=== PATIENT | male | born 1980 | race Caucasian/White ===

== ENCOUNTER 2016-12-07 23:12 | Emergency (ER) | payer SELFPAY ==
[2016-12-07] MEDS ORDERED: 0.9 % SODIUM CHLORIDE 1,000 ML IV ONE (23:29)
--- NOTE | 2016-12-08 00:03 | ED Physician Documentation ---
General Adult - HISTORIAN Historian: patient, paramedics - HPI Stated Complaint: passed out Chief Complaint: General Adult Additional Information: Three beers this morning and his usual 20 mg lisinopril. Took white valium tablet at 1300 that he got from someone else, for stress. Took another 20 mg lisinopril later in the daybecause he felt like his BP was up. Went to [place] tonight and when he got there, everything went black and he passed out. Denies injury. BP 111/60 on arrival in ER. Initial orthostatics show significant drop in pressure with standing. - ROS CONST: no problems MS/SKIN/LYMPH: back pain (has had this before) - PAST HX Past History: hypertension Allergies/Adverse Reactions: Allergies Allergy/AdvReac Type Severity Reaction Status Date / Time Sulfa (Sulfonamide Allergy Verified 12/07/16 23:50 Antibiotics) Home Medications: Ambulatory Orders Medication Instructions Recorded Lisinopril [Zestril] 20 mg PO DAILY 06/21/16 - SOCIAL HX Smoking History: cigarettes Alcohol Use: occasionally Drug Use: none - FAMILY HX Family History: No - VITAL SIGNS Vital Signs: Vital Signs Temp Pulse Resp BP Pulse Ox 112/72 06/21/16 23:32 - REVIEWED ASSESSMENTS Nursing Assessment Reviewed: Yes Vitals Reviewed: Yes Progress - Progress Progress: Portable chest History: Syncope Findings: The lungs are clear. No pleural effusions are observed. Heart size and pulmonary vascularity are normal. Osseous structures are unremarkable. Impression: Normal portable chest. Electronically signed on Dec 07, 2016 11:57:09 PM CDT by: John Gardner EKG: sinus rhythm, 70 BPM, no acute ischemic changes Labs good. UDS non-negative for cannabinoids. Interestingly, negative for benzodiazepines. Orthostatics stable after 2L NS. ED Results Lab/Radiology - Orders Orders: ED Orders Category Date Time Status Continuous EKG monitoring Q1H Care 12/07/16 23:29 Ordered Continuous Pulse Oximetry Q1H Care 12/07/16 23:29 Ordered Orthostatics 1T Care 12/07/16 23:[address] Saline Lock/IV Now Care 12/07/16 23:29 Ordered CHEST 1 VIEW [RAD] Stat Exams 12/07/16 Ordered DRUG SCREEN URINE MEDICAL ONLY Routine Lab 12/07/16 Ordered URINALYSIS Routine Lab 12/07/16 Ordered Chem Sticks Med 12/07/16 23:30 Ordered 1 each MC CHEMQ PRN NORMAL SALINE @ 1000 MLS/HR ( 1000ml BOLUS) Med 12/07/16 23:29 Ordered 0.9 % Sodium Chloride [Normal Saline] 1,000 ml IV Q1H EKG WITH COMPARISON Stat Ther 12/07/16 Ordered General Adult Physical Exam - PHYSICAL EXAM GENERAL APPEARANCE: no distress EENT: eye inspection normal, ENT inspection normal NECK: normal inspection, supple RESPIRATORY: no resp distress, chest non-tender, breath sounds normal CVS: reg rate & rhythm, heart sounds normal, no murmur, no gallop ABDOMEN: soft, normal bowel sounds RECTAL: deferred BACK: normal inspection, no CVA tenderness SKIN: warm/dry, normal color EXTREMITIES: no evidence of injury, no edema NEURO: CN's nml as tested, motor nml, sensation nml, cognition normal Discharge Clincal Impression: Syncope Qualifiers: Syncope type: unspecified Qualified Code(s): R55 - Syncope and collapse Home Medications: Ambulatory Orders Lisinopril [Zestril] 20 mg PO DAILY 06/21/16 Condition: Good Disposition: 01 HOME, SELF-CARE Decision to Admit: NO Decision Time: 01:24
[2016-12-08] MEDS ORDERED: 0.9 % SODIUM CHLORIDE 1,000 ML IV ONE (00:30)
[2016-12-08 00:32] LABS: BASOPHILS % 0.3 (0.0-1.5); EOSINOPHILS % 2.2 % (0.0-6.8); MEAN CORPUSCULAR HEMOGLOBIN 27.6 pg (28.0-34.0); MEAN CORPUSCULAR VOLUME 84.3 fl (80.0-100.0); MONOCYTES % 4.4 % (0.0-11.0); NEUTROPHILS # 4.4 # k/uL (1.4-7.7)
[2016-12-08 00:35] LABS: eGFR (African) > 60; eGFR (Non-African) > 60
[2016-12-08 01:44] VITALS: BP 126/61
[2016-12-08 05:32] LABS: AMPHETAMINE NEGATIVE ng/mL (<1000); BARBITURATES NEGATIVE ng/mL (<300); CANNABINOIDS NON NEGATIVE ng/mL (<50); COCAINE NEGATIVE ng/mL (<150); METHAMPHETAMINE NEGATIVE ng/mL (<1000); METHYLENEDIOXYMETHAMPHETAMINE NEGATIVE ng/mL (<500)
[2016-12-08 05:33] LABS: APPEARANCE,URINE CLEAR (CLEAR); COLOR,URINE YELLOW (YELLOW); OCCULT BLOOD,URINE NEGATIVE (NEGATIVE); PH URINE 5.5 (5.0 - 8.0); UROBILINOGEN URINE 0.2 Eu (0.2-1.0)
--- NOTE | 2016-12-08 06:26 | Diagnostic Imaging Report ---
MACKENZIE JIANG - KATIE [facility] [id number] [facility] [address] [place] [address]. [id number] Report Submission Date: Dec 07, 2016 11:57:09 PM CDT Patient Study Name: WINNIE MAZA Date: Dec 07, 2016 11:38:19 PM CDT Modality Type: CR Gender: M Description: CHEST : 82 Institution: [facility] Physician: MACKENZIE JIANG - KATIE Portable chest History: Syncope Findings: The lungs are clear. No pleural effusions are observed. Heart size and pulmonary vascularity are normal. Osseous structures are unremarkable. Impression: Normal portable chest. Electronically signed on Dec 07, 2016 11:57:09 PM CDT by: John ANDREA
== END 2016-12-08 01:25 | disposition home or self-care (01) ==
LOC: ED 23:12
DX: R55 Syncope and collapse (principal)
CPT/HCPCS: 71010; 80053; 80320; 80377; 81002; 85025; 93005; J7030; 96360; 99283; G0480; G0481; S1016

== ENCOUNTER 2017-10-14 14:58 | Emergency (ER) | payer SELFPAY ==
--- NOTE | 2017-10-14 15:02 | ED Physician Documentation ---
General Adult - HISTORIAN Historian: patient, paramedics - HPI Stated Complaint: chest pain Chief Complaint: General Adult Onset: minutes Timing: still present Severity: moderate Further Comments: yes (Pt is a 37 yo male with no previous cardiac hx who had sudden onset of chest pain after sitting smoking a cigarette. Pt has hx HTN. Pain was central and did not radiate. Pt did not have n/v/diaphoresis.) - ROS CONST: no problems EYES/ENT: none CVS/RESP: chest pain GI/: none MS/SKIN/LYMPH: none - PAST HX Past History: hypertension Allergies/Adverse Reactions: Allergies Allergy/AdvReac Type Severity Reaction Status Date / Time Sulfa (Sulfonamide Allergy Verified 10/14/17 15:28 Antibiotics) Home Medications: Ambulatory Orders Medication Instructions Recorded Lisinopril [Zestril] 20 mg PO DAILY 06/21/16 - SOCIAL HX Smoking History: less than 1 pack/day - FAMILY HX Family History: No - VITAL SIGNS Vital Signs: Vital Signs Temp Pulse Resp BP Pulse Ox 126/61 12/08/16 01:37 - REVIEWED ASSESSMENTS Nursing Assessment Reviewed: Yes Vitals Reviewed: Yes Progress - Progress Progress: ASA 325 mg po GI cocktail Sx resolved shortly after GI cocktail Rx Ranitidine 150 mg Sig 1 po bid. Disp 60; RF 2. f/u pcp prn - EKG/XRAY/CT EKG: NSR (HR=89; normal WI interval; normal axis.) XRAY: chest (neg) General Adult Physical Exam - PHYSICAL EXAM GENERAL APPEARANCE: mild distress EENT: pharynx normal NECK: normal inspection, supple RESPIRATORY: no resp distress, chest non-tender, breath sounds normal CVS: reg rate & rhythm, heart sounds normal, equal pulses ABDOMEN: soft, no organomegaly, normal bowel sounds BACK: normal inspection, no CVA tenderness SKIN: warm/dry, normal color EXTREMITIES: non-tender, normal range of motion, no evidence of injury, no edema NEURO: oriented X3, motor nml, sensation nml Discharge Clincal Impression: GERD (gastroesophageal reflux disease) Qualifiers: Esophagitis presence: esophagitis presence not specified Qualified Code(s): K21.9 - Gastro-esophageal reflux disease without esophagitis Referrals: Primary Doctor,No [Primary Care Provider] - Condition: Good Decision to Admit: NO Decision Time: 16:34
[2017-10-14] MEDS ORDERED: ASPIRIN 81 MG CHEW TAB PO ONE (15:03)
[2017-10-14 15:26] LABS: BASOPHILS % 0.4 (0.0-1.5); EOSINOPHILS % 1.9 % (0.0-6.8); MEAN CORPUSCULAR HEMOGLOBIN 26.9 pg (28.0-34.0); MEAN CORPUSCULAR VOLUME 84.7 fl (80.0-100.0); MONOCYTES % 4.6 % (0.0-11.0); NEUTROPHILS # 5.8 # k/uL (1.4-7.7)
[2017-10-14 15:40] LABS: eGFR (African) > 60; eGFR (Non-African) > 60
[2017-10-14] MEDS ORDERED: MAG HYDROX/AL HYDROX/SIMETH 30 ML, Lidocaine 2%Visc 15ml 20 MG, PHENobarb/HYOSCY/ATROPI... PO ONE ×3 (16:12)
[2017-10-14] MEDS ORDERED: Lidocaine 2%Visc 15ml 20 MG/ML UDC ONE (16:12)
[2017-10-14] MEDS ORDERED: MAGNESIUM HYDROXIDE/AL HYDROX 30 ML UDC PO ONE (16:12)
--- NOTE | 2017-10-14 16:29 | Diagnostic Imaging Report ---
ZAIRA SOLIS [facility] [id number] [facility] [address] [place] [address]. [id number] Report Submission Date: Oct 14, 2017 3:37:43 PM CLINIC LPN Patient Study Name: WINNIE MAZA Date: Oct 14, 2017 3:19:10 PM CLINIC LPN Modality Type: DX Gender: M Description: CHEST : 82 Institution: [facility] Physician: ZIARA SOLIS Examination: Portable chest History: CHEST PAIN X1 HOUR, PT STATES FEELING FULL/CONGESTED IN HIS CHEST (Hx) Comparison exam: None available for direct review. Findings: Single view of the chest demonstrates a normal cardiac and mediastinal silhouette. Lung kelley without focal infiltrate. No blunting of the costophrenic margins. Osseous structures are appropriate for age. Impression: No acute pulmonary process. Electronically signed on Oct 14, 2017 3:37:43 PM CLINIC LPN by: Edil ANDREA
[2017-10-14 16:57] VITALS: BP 160/86
== END 2017-10-14 16:15 | disposition home or self-care (01) ==
LOC: ED 14:58
DX: K21.9 Gastro-esophageal reflux disease without esophagitis (principal); I10 Essential (primary) hypertension; F17.210 Nicotine dependence, cigarettes, uncomplicated
CPT/HCPCS: 71045; 80053; 82550; 82553; 84484; 85025; 85379; 93005; A9270; 99283